=== PATIENT | female | born 1955 | race Asian ===

== ENCOUNTER 2020-01-08 13:22 | Outpatient (CLI) | payer OTHER ==
[2020-01-08 13:42] LABS: PLATELET COUNT 243 K/uL (152-353)
[2020-01-08 13:59] LABS: POTASSIUM 3.6 mmol/L (3.6-5.2)
== END 2020-01-08 22:29 | disposition home or self-care (01) ==
LOC: LAB 13:22
PROVIDERS: Nurse Practitioner Family
DX: I10 Essential (primary) hypertension (principal); Z13.0 Encounter for screening for diseases of the blood and blood-forming organs and certain disorders involving the immune mechanism; Z13.220 Encounter for screening for lipoid disorders; Z13.29 Encounter for screening for other suspected endocrine disorder; Z79.899 Other long term (current) drug therapy
CPT/HCPCS: 80053; 80061; 81000; 83036; 84443; 85027